=== PATIENT | male | born 2000 | race Caucasian/White ===

== ENCOUNTER → 2020-05-10 | Outpatient (REF) | payer OTHER | LOC: M LAB REF 16:16 | PROVIDERS: ATTEND Physician Assistant | DX: N39.0 Urinary tract infection, site not specified (principal); R30.0 Dysuria ==

== ENCOUNTER → 2020-07-19 | Outpatient (REF) | payer OTHER | LOC: M WUC 15:00 | PROVIDERS: ATTEND Physician Assistant | DX: R30.0 Dysuria (principal) ==

== ENCOUNTER → 2021-02-16 | Outpatient (CLI) | payer BC, OTHER ==
[2021-02-16 09:58] LABS: FREE T4 1.04 NG/DL (0.76-1.46); THYROGLOBULIN ANTIBODY 18.4 U/ML (<60.0); THYROID PEROXIDASE ANTIBODY < 28.0 U/ML (<60.0); THYROXINE (T4) 8.8 UG/DL (4.5-12.0); TOTAL T3 121.4 NG/DL (60.0-181.0)
[2021-02-16 13:57] LABS: FREE T3 3.7 PG/ML (2.2-4.0)
== END ==
LOC: M LAB 07:59
PROVIDERS: ATTEND Physician Assistant
DX: E03.9 Hypothyroidism, unspecified (principal)